=== PATIENT | female | born 1925 | race Caucasian/White ===

== ENCOUNTER 2017-03-13 12:16 | Emergency (ER) | payer MEDICARE ==
[~2017-03-13] VITALS: Ht 162.6 cm; Wt 60.0 kg
[2017-03-13] MEDS ORDERED: AMLO2.5T45 PO (12:23)
[2017-03-13] MEDS ORDERED: METO-396 PO (12:23)
[2017-03-13] MEDS ORDERED: VALS40TA4 PO (12:23)
[2017-03-13] MEDS ORDERED: LORA2VIA33 IJ (12:23)
[2017-03-13] MEDS ORDERED: ONDANSETRON HCL 4MG/2ML VIAL IV STA (12:30)
[2017-03-13] MEDS ORDERED: SODIUM CHLORIDE 0.9% 1,000 ML IV ONE (12:30)
[2017-03-13 12:53] LABS: HEMATOCRIT. 43.5 % (36.0-48.0); HEMOGLOBIN. 14.7 g/dL (12.0-16.0); MEAN CORPUSCULAR HEMOGLOBIN 28.7 pg (28.0-32.0); MEAN CORPUSCULAR VOLUME 85.2 fL (81.0-99.0); MEAN PLATELET VOLUME 7.7 fl (7.4-10.4); PLATELET 208 x1000/uL (130-400); RED BLOOD CELL COUNT 5.11 mill/uL (4.2-5.4); RED CELL DISTRIBUTION WIDTH 13.6 % (11.6-14.6)
[2017-03-13 12:59] LABS: INR 1.1
[2017-03-13 13:06] LABS: CARBON DIOXIDE 28 mEq/L (21-32); CHLORIDE 101 mEq/L (98-107)
[2017-03-13 13:12] LABS: PLATELET ESTIMATE NORMAL
[2017-03-13 14:30] LABS: CLARITY URINE CLOUDY (CLEAR); COLOR URINE YELLOW (YELLOW); KETONES URINE TRACE (NEGATIVE); LEUKOCYTE ESTERASE URINE NEGATIVE (NEGATIVE); NITRITE URINE NEGATIVE (NEGATIVE); OCCULT BLOOD URINE NEGATIVE (NEGATIVE); PROTEIN URINE NEGATIVE (NEGATIVE); SPECIFIC GRAVITY URINE 1.012 (1.005-1.030)
[2017-03-13 15:20] VITALS: BP 124/67
== END 2017-03-13 15:46 | disposition home or self-care (01) ==
LOC: ER 12:25
DX: R11.2 Nausea with vomiting, unspecified (principal); F41.9 Anxiety disorder, unspecified; I10 Essential (primary) hypertension; R79.1 Abnormal coagulation profile; Z88.0 Allergy status to penicillin; Z88.2 Allergy status to sulfonamides; Z88.5 Allergy status to narcotic agent; Z88.8 Allergy status to other drugs, medicaments and biological substances
CPT/HCPCS: 36415; 71010; 80053; 81001; 85025; 85610; 96361; 96374; 99285; J2405; J7030